=== PATIENT | female | born 1950 | race Caucasian/White ===

== ENCOUNTER 2018-04-26 15:33 | Emergency (ER) | payer OTHER ==
[~2018-04-26] VITALS: Ht 177.8 cm; Wt 113.6 kg
[2018-04-26] MEDS ORDERED: FLEXERIL10 MG PO (17:06)
[2018-04-26 17:35] VITALS: BP 135/77
== END 2018-04-26 17:35 | disposition home or self-care (01) ==
LOC: RME 15:33 → EME 15:33 → RME 17:35
DX: S16.1XXA Strain of muscle, fascia and tendon at neck level, initial encounter (principal); V49.50XA Passenger injured in collision with unspecified motor vehicles in traffic accident, initial encounter; Z98.890 Other specified postprocedural states; Z98.1 Arthrodesis status; F17.200 Nicotine dependence, unspecified, uncomplicated
CPT/HCPCS: 72125; 99281; 99284